=== PATIENT | male | born 1970 | race Two or more races ===

== ENCOUNTER 2020-07-11 05:43 | Emergency (ER) | payer OTHER ==
[~2020-07-11] VITALS: Ht 167.6 cm; Wt 68.0 kg
[2020-07-11 07:08] LABS: Urine Bacteria FEW /hpf (None Seen); Urine Blood 1+ /uL (Negative); Urine Mucus FEW (None Seen); Urine Specific Gravity 1.019 (1.001-1.035); Urine WBC 91 /hpf (0 - 3)
[2020-07-11 08:01] LABS: Basophils # (auto) 0 10 ^3/uL (0-0.2); Basophils % (auto) 0.2 % (0.0-2.0); Eosinophils # (auto) 0 10 ^3/uL (0-0.8); Eosinophils % (auto) 0.4 % (0.0-7.0); Hematocrit 45.3 % (41.0-53.0); Hemoglobin 15.4 g/dL (13.5-17.5); Lymphocytes # (auto) 0.6 10 ^3/uL (0.4-5.4); Lymphocytes % (auto) 6.5 % (10.0-50.0); Mean Corpuscular Hemoglobin 30.1 pg (28.0-32.0); Mean Corpuscular Hgb Conc. 33.9 g/dL (32.0-36.0); Mean Corpuscular Volume 88.8 fL (80.0-100.0); Monocytes # (auto) 0.5 10 ^3/uL (0-1.3); Monocytes % (auto) 6.4 % (0.0-12.0); Neutrophils # (auto) 7.4 10 ^3/uL (1.6-8.6); Neutrophils % (auto) 86.5 % (37.0-80.0); Platelet Count (auto) 180 10^3/uL (140-450); Red Cell Distribution Width 13.7 % (11.8-14.3); White Blood Cell 8.6 10^3/uL (4.4-10.8)
[2020-07-11 08:12] LABS: Lactic Acid w/Reflex 2.3 mmol/L (0.4-2.0)
[2020-07-11 08:13] LABS: Albumin 3.5 g/dL (3.4-5.0); Amylase 51 U/L (25-115); Anion Gap 8 (5-15); Blood Urea Nitrogen 18 mg/dL (7-18); Calcium 8.5 mg/dL (8.5-10.1); Carbon Dioxide 21 mmol/L (21-32); Chloride 108 mmol/L (98-107); Glucose 128 mg/dL (74-106); Lipase 132 U/L (73-393); Magnesium 2.2 mg/dL (1.6-2.6); Potassium 3.8 mmol/L (3.5-5.1); Sodium 137 mmol/L (136-145)
[2020-07-11 08:20] LABS: Alanine Aminotransferase 46 U/L (16-61); Alkaline Phosphatase 127 U/L (45-117); Aspartate Aminotransferase 28 U/L (15-37); BUN/Creatinine Ratio 18.4; Bilirubin, Total 0.7 mg/dL (0.2-1.0); GFR African American 103 mL/min; GFR Non-African American 85 mL/min
[2020-07-11] MEDS ORDERED: cefTRIAXone 1GM/50ML D5W 50 ML IV ONE (10:30)
[2020-07-11 11:29] VITALS: BP 134/68
== END 2020-07-11 13:00 | disposition home or self-care (01) ==
LOC: ER 05:43
DX: N39.0 Urinary tract infection, site not specified (principal); Z20.828 Contact with and (suspected) exposure to other viral communicable diseases
CPT/HCPCS: 36415; 71045; 74176; 80053; 81001; 82150; 82728; 83605; 83690; 83735; 84484; 85025; 87040; 87426; 93005; 96365; 96366; 99285; C9803; J0696; U0003

== ENCOUNTER 2024-12-08 05:18 | Emergency (ER) | payer OTHER ==
[~2024-12-08] VITALS: Ht 162.6 cm; Wt 72.0 kg
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
[2024-12-08 07:37] VITALS: BP 153/91; PULSE 69; RESP 18; TEMP 98.7; O2SAT 98
[2024-12-08] MEDS ORDERED: IBUP-1454 PO (08:12)
[2024-12-08] MEDS ORDERED: METH-1181 PO (08:12)
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
[2024-12-08] MEDS: KETOROLAC TROMETH 30 MG/ML 1ML VIAL IM ONE (08:27)
== END 2024-12-08 08:35 | disposition home or self-care (01) ==
LOC: EDBD 05:18 → ER 05:18
DX: M54.2 Cervicalgia (principal); M54.6 Pain in thoracic spine; M79.622 Pain in left upper arm; Z79.1 Long term (current) use of non-steroidal anti-inflammatories (NSAID); Z79.899 Other long term (current) drug therapy; V89.2XXA Person injured in unspecified motor-vehicle accident, traffic, initial encounter; Y93.89 Activity, other specified; Y92.89 Other specified places as the place of occurrence of the external cause; Y99.8 Other external cause status
CPT/HCPCS: 72125; 72128; 96372; 99285; J1885